=== PATIENT | female | born 1985 | race Caucasian/White ===

== ENCOUNTER → 2020-09-15 16:06 | Outpatient (CLI) | payer OTHER, SELFPAY ==
[2020-09-17 10:18] LABS: Progesterone 9.4 ng/mL (.)
== END ==
PROVIDERS: Visit Provider Obstetrics & Gynecology
DX: Z31.9 Encounter for procreative management, unspecified (principal)
CPT/HCPCS: 36415; 84144

== ENCOUNTER → 2020-11-08 17:36 | Outpatient (CLI) | payer SELFPAY ==
[2020-11-10 10:12] LABS: Progesterone 26.9 ng/mL (.)
== END ==
PROVIDERS: Visit Provider Obstetrics & Gynecology
DX: N97.9 Female infertility, unspecified (principal)
CPT/HCPCS: 36415; 84144

== ENCOUNTER → 2021-06-21 10:21 | Outpatient (CLI) | payer BC, SELFPAY ==
--- NOTE | 2021-06-21 10:36 | XR_ITS ---
FINAL REPORT TECHNIQUE: 5 views CLINICAL HISTORY: LOW BACK PAIN FINDINGS: There is no fracture present. There is no malalignment. There are no significant degenerative changes. IMPRESSION: No acute process. Reviewed, Interpreted and Dictated by Toño Bright MD Transcribed by Lorenza Castillo Authenticated by Toño Bright MD on 06/21/2021 12:14:25 PM [facility]
== END ==
PROVIDERS: PCP Nurse Practitioner Family; Visit Provider Nurse Practitioner Family
DX: M54.41 Lumbago with sciatica, right side (principal)
CPT/HCPCS: 72110